=== PATIENT | male | born 1980 | race Two or more races ===

== ENCOUNTER 2024-01-24 11:19 | Inpatient (IN) | payer MEDICAID ==
[~2024-01-24] VITALS: Ht 170.2 cm; Wt 89.4 kg
[2024-01-24 10:00] VITALS: BP 147/99; PULSE 95; RESP 18; TEMP 97.6; O2SAT 95
[2024-01-24] MEDS ORDERED: LISI-892 PO (12:05)
[2024-01-24] MEDS ORDERED: BUPR1TAB46 SL ×2 (12:05→16:04)
[2024-01-24] MEDS ORDERED: FURO20 PO (12:05)
[2024-01-24] MEDS ORDERED: GABA-1181 PO (12:05)
[2024-01-24] MEDS ORDERED: CARV3 PO (12:05)
[2024-01-24] MEDS ORDERED: QUET200T PO (12:05)
[2024-01-24] MEDS ORDERED: OLAN10TA74 PO (12:05)
[2024-01-24 15:00] LABS: PH,URINE DRUG SCREEN 7.5 (5.0-8.0)
[2024-01-24] MEDS: BuPROPion HCL 150 MG SR TABLET PO ONE (15:03)
[2024-01-24] MEDS: OLANZapine 10 MG TABLET PO ONE (15:04)
[2024-01-24 15:07] LABS: ALCOHOL, URINE DRUG SCREEN NEGATIVE (NEGATIVE); AMPHET/METH SCREEN,URINE NEGATIVE (NEGATIVE); BARBITURATE SCREEN, URINE NEGATIVE (NEGATIVE); BENZODIAZEPINES SCREEN,URINE NEGATIVE (NEGATIVE); CANNABINOID SCREEN,URINE POSITIVE (NEGATIVE); COCAINE SCREEN,URINE NEGATIVE (NEGATIVE); METHADONE SCREEN, URINE NEGATIVE (NEGATIVE); OPIATE SCREEN,URINE NEGATIVE (NEGATIVE); PHENCYCLIDINE SCREEN,URINE NEGATIVE (NEGATIVE)
[2024-01-24] MEDS ORDERED: BUPR-433 PO (15:09)
[2024-01-24 15:36] LABS: COVID AG,FIA SOURCE NASAL SWAB
[2024-01-24] MEDS ORDERED: HALOPERIDOL 5 MG TABLET PO PRN (15:45)
[2024-01-24 16:00] LABS: BASOPHILS % (AUTO) 0.6 % (0.0-2.0); EOSINOPHILS % (AUTO) 0.9 % (1.0-6.0); HEMATOCRIT 43.5 % (41-53); HEMOGLOBIN 14.3 g/dL (13.5-17.5); LYMPHOCYTES # (AUTO) 1.5 K/uL (1.0-4.8); MEAN CORPUSCULAR HEMOGLOBIN 31.6 pg (26.0-34.0); MEAN CORPUSCULAR VOLUME 96 fL (80-100); MONOCYTES # (AUTO) 0.4 K/uL (0.1-1.0); MONOCYTES % (AUTO) 6.5 % (2.0-9.0); NEUTROPHILS # (AUTO) 4.8 K/uL (1.8-7.7); PLATELET COUNT (AUTO) 211 K/uL (150-450); RED BLOOD CELL COUNT(AUTO) 4.54 MIL/uL (4.50-5.90); RED CELL DISTRIBUTION WIDTH 13.3 % (11.5-14.5); WHITE BLOOD COUNT (AUTO) 6.9 K/uL (4.5-11.0)
[2024-01-24 16:09] LABS: ANION GAP 9 mmol/L (8-16); CALCIUM, TOTAL 9.1 mg/dL (8.8-10.5); CARBON DIOXIDE 30 mmol/L (22-29); CHLORIDE 99 mmol/L (98-107); CREATININE 1.07 mg/dL (0.60-1.30); GLOMERULAR FILTR. RATE CALC > 60 mL/min (>60); GLUCOSE,RANDOM 109 mg/dL (70-110); POTASSIUM 3.8 mmol/L (3.5-5.1); SODIUM SERUM 138 mmol/L (136-145); UREA NITROGEN, BLOOD 15 mg/dL (7-18)
[2024-01-24 16:12] LABS: ALCOHOL, BLOOD (SERUM) < 3 mg/dL (0-10)
[2024-01-24 16:20] LABS: SARS-COV2 (COVID) ANTIGEN,FIA Negative (Negative)
[2024-01-24] MEDS: BUPRENORPHINE HCL/NALOXONE HCL 8-2 MG SUBLINGUAL TABLET SL ONE (16:41)
[2024-01-24 17:08] VITALS: BP 141/87; PULSE 100; RESP 18; TEMP 97.8; O2SAT 98
[2024-01-24] MEDS: LORazepam 2 MG TABLET PO PRN (17:45)
[2024-01-24 21:30] VITALS: BP 95/55; PULSE 100; RESP 18; TEMP 97.5; O2SAT 100
[2024-01-24] MEDS: LORazepam 2 MG/ML VIAL IM ONE (22:03)
[2024-01-24] MEDS: DiphenhydrAMINE HCL 50 MG/ML VIAL IM ONE (22:03)
[2024-01-24] MEDS: ChlorproMAZINE HCL 50 MG/2 ML AMP IM ONE (22:04)
[2024-01-24 22:39] VITALS: BP 147/99; PULSE 95; RESP 18; TEMP 97.8; O2SAT 100
[2024-01-25] MEDS ORDERED: HALOPERIDOL 5 MG TABLET PO PRN (10:30)
[2024-01-25 10:49] VITALS: BP 146/61; PULSE 93; RESP 18; TEMP 97.4; O2SAT 99
[2024-01-25] MEDS: BUPRENORPHINE HCL/NALOXONE HCL 8-2 MG SUBLINGUAL TABLET SL SCH (13:49)
[2024-01-25] MEDS ORDERED: CloNIDine HCL 0.1 MG TABLET PO PRN (14:15)
[2024-01-25] MEDS ORDERED: DOCUSATE SODIUM 100 MG CAPSULE PO PRN (14:15)
[2024-01-25] MEDS ORDERED: ALBUTEROL SULFATE HFA 90 MCG/PUFF 8 GM INHALER IH PRN (14:15)
[2024-01-25] MEDS ORDERED: LOPERAMIDE HCL 2 MG CAPSULE PO PRN (14:15)
[2024-01-25] MEDS ORDERED: NICOTINE 14 MG/24 HOUR PATCH TD PRN (14:15)
[2024-01-25] MEDS ORDERED: MAGNESIUM HYDROXIDE SUSPENSION 30 ML UDCUP PO PRN (14:15)
[2024-01-25] MEDS ORDERED: QUEtiapine FUMARATE 100 MG TABLET PO PRN (14:30)
[2024-01-25] MEDS: BuPROPion HCL 150 MG SR TABLET PO SCH (15:10)
[2024-01-25] MEDS: OLANZapine 10 MG TABLET PO SCH (15:16)
[2024-01-25] MEDS: GABAPENTIN 300 MG CAPSULE PO SCH (18:01)
[2024-01-25] MEDS: FUROSEMIDE 20 MG TABLET PO SCH (18:01)
[2024-01-25] MEDS: CARVEDILOL 3.125 MG TABLET PO SCH (18:04)
[2024-01-25] MEDS: QUEtiapine FUMARATE 200 MG TABLET PO SCH (20:44)
[2024-01-26 07:33] LABS: HEMOGLOBIN A1C 5.7 % (3.8-5.6)
[2024-01-26 07:40] LABS: THYROID STIMULATING HORMONE 1.72 uIU/mL (0.36-3.74)
[2024-01-26] MEDS: OMEPRAZOLE 20 MG CAPSULE PO SCH (08:00)
[2024-01-26] MEDS: LISINOPRIL 5 MG TABLET PO SCH (08:06)
[2024-01-26 08:16] LABS: CHOL/HDL RATIO 2.2 (4.2-7.3)
[2024-01-26 09:48] VITALS: BP 136/85; PULSE 85; RESP 18; TEMP 98.1; O2SAT 97
[2024-01-26] MEDS: ZOLPIDEM TARTRATE 10 MG TABLET PO PRN (22:57)
[2024-01-27 08:54] VITALS: BP 135/87; PULSE 88; RESP 18; TEMP 97.3; O2SAT 97
[2024-01-27 20:19] VITALS: BP 135/90; PULSE 96; RESP 18; TEMP 97.9; O2SAT 98
[2024-01-28 08:03] VITALS: BP 146/92; PULSE 72; RESP 18; TEMP 96.9; O2SAT 99
[2024-01-28 20:48] VITALS: BP 149/85; PULSE 92; RESP 18; TEMP 97.7; O2SAT 97
[2024-01-29 10:09] VITALS: BP 156/99; PULSE 83; RESP 18; TEMP 97.6; O2SAT 99
[2024-01-29] MEDS: PETROLATUM,WHITE 28 GM JELLY TP PRN (11:33)
[2024-01-29] MEDS ORDERED: SODIUM CHLORIDE 0.9% 1,000 ML ONE (15:59)
[2024-01-29 20:32] VITALS: BP 143/84; PULSE 84; RESP 18; TEMP 97.8; O2SAT 98
[2024-01-29] MEDS: QUEtiapine FUMARATE 200 MG TABLET PO SCH (21:08)
[2024-01-30 09:34] VITALS: BP 154/99; PULSE 83; RESP 18; TEMP 97.9; O2SAT 98
[2024-01-30 20:33] VITALS: BP 112/87; PULSE 109; RESP 18; TEMP 98; O2SAT 96
[2024-01-31 08:15] VITALS: BP 157/81; PULSE 76; RESP 18; O2SAT 100
[2024-01-31] MEDS: ONDANSETRON 4 MG TABLET PO PRN (08:16)
[2024-01-31] MEDS: ACETAMINOPHEN 325 MG TABLET PO PRN ×2 (11:10→16:33)
[2024-01-31 21:24] VITALS: RESP 18
[2024-01-31 21:56] VITALS: BP 117/77; PULSE 92; RESP 18; TEMP 97.5; O2SAT 95
[2024-02-01] MEDS: MAG HYDROX/ALUMINUM HYD/SIMETH ES 30 ML SUSPENSION UDCUP PO PRN (13:11)
[2024-02-01] MEDS ORDERED: IOHEXOL 9 MG/ML 500 ML BOTTLE ONE (15:16)
[2024-02-01 15:19] LABS: COVID AG,FIA SOURCE NASAL SWAB
[2024-02-01 16:00] LABS: SARS-COV2 (COVID) ANTIGEN,FIA Negative (Negative)
[2024-02-01] MEDS: DiphenhydrAMINE HCL 50 MG/ML VIAL IM ONE (20:08)
[2024-02-01] MEDS: BENZTROPINE MESYLATE 1 MG TABLET PO SCH (21:00)
[2024-02-01 21:02] VITALS: BP 142/96; PULSE 86; RESP 20; TEMP 97; O2SAT 97
[2024-02-01 21:17] VITALS: BP 149/105; PULSE 89; RESP 18; TEMP 97.2; O2SAT 95
[2024-02-01 22:07] VITALS: RESP 17
[2024-02-02 08:25] VITALS: BP 165/100; PULSE 77; RESP 20; TEMP 98; O2SAT 99
[2024-02-02 10:29] VITALS: BP 165/100; PULSE 77; RESP 20; TEMP 98; O2SAT 99
[2024-02-02] MEDS: BISACODYL 10 MG RECTAL RECTAL SUPPOSITORY PR PRN (13:06)
[2024-02-02 20:58] VITALS: BP 122/101; PULSE 104; RESP 18; TEMP 97.2; O2SAT 97
[2024-02-03] MEDS: POLYETHYLENE GLYCOL 3350 17 GM PACKET PO SCH (08:36)
[2024-02-03 08:44] VITALS: BP 135/89; PULSE 82; RESP 18; TEMP 97.3; O2SAT 100
[2024-02-03 20:57] VITALS: BP 134/86; PULSE 104; RESP 18; TEMP 97.3; O2SAT 96
[2024-02-03 22:33] VITALS: RESP 18
[2024-02-03 23:36] VITALS: RESP 18
[2024-02-04 09:13] VITALS: BP 143/92; PULSE 93; RESP 20; O2SAT 98
[2024-02-04 13:53] VITALS: RESP 18
[2024-02-04] MEDS: GuaiFENesin/D-METHORPHAN [SUGAR-FREE] 200-20MG/10 ML SYRUP UDCUP PO PRN (14:02)
[2024-02-04 14:55] VITALS: RESP 16
[2024-02-04 21:00] VITALS: BP 129/94; PULSE 107; RESP 18; TEMP 97; O2SAT 97
[2024-02-04 22:00] VITALS: RESP 18
[2024-02-05 08:22] VITALS: BP 136/78; PULSE 106; RESP 18; TEMP 97.6; O2SAT 97
[2024-02-05 08:45] VITALS: BP 149/92; PULSE 105; RESP 18; TEMP 97.8; O2SAT 97
[2024-02-05 09:49] VITALS: RESP 17
[2024-02-05] MEDS ORDERED: LORazepam 1 MG TABLET PO PRN (10:17)
[2024-02-05] MEDS ORDERED: ZOLPIDEM TARTRATE 5 MG TABLET PO PRN (10:30)
[2024-02-05 10:32] LABS: COVID AG,FIA SOURCE NASAL SWAB
[2024-02-05 11:30] LABS: SARS-COV2 (COVID) ANTIGEN,FIA Positive (Negative)
[2024-02-05 12:51] VITALS: BP 134/84; PULSE 86; RESP 18; TEMP 98.8; O2SAT 96
[2024-02-05 14:58] VITALS: TEMP 98.7
[2024-02-05 16:19] VITALS: BP 144/97; PULSE 88; RESP 20; TEMP 98.1; O2SAT 97
== END 2024-02-05 16:00 | disposition left against medical advice (07) | DRG 750 ==
LOC: EMS 11:19 → 3EI 16:20 → 3EC 19:41
PROVIDERS: ADMIT Psychiatry & Neurology Psychiatry; ATTEND Psychiatry & Neurology Psychiatry
PROC: GZ52ZZZ Individual Psychotherapy, Cognitive (ICD-10-PCS; 2024-01-25)
PROC: GZHZZZZ Group Psychotherapy (ICD-10-PCS; 2024-01-25)
PROC: 0DC98ZZ Extirpation of Matter from Duodenum, Via Natural or Artificial Opening Endoscopic (ICD-10-PCS; principal; 2024-01-29 16:30)
DX: F25.1 Schizoaffective disorder, depressive type (principal); U07.1 COVID-19; R45.851 Suicidal ideations; I50.9 Heart failure, unspecified; I11.0 Hypertensive heart disease with heart failure; F31.9 Bipolar disorder, unspecified; F11.20 Opioid dependence, uncomplicated; G47.00 Insomnia, unspecified; F12.10 Cannabis abuse, uncomplicated; K21.9 Gastro-esophageal reflux disease without esophagitis; K59.00 Constipation, unspecified; G62.9 Polyneuropathy, unspecified; T18.8XXA Foreign body in other parts of alimentary tract, initial encounter; Z53.29 Procedure and treatment not carried out because of patient's decision for other reasons; W44.8XXA Other foreign body entering into or through a natural orifice, initial encounter; Y93.89 Activity, other specified; Y92.89 Other specified places as the place of occurrence of the external cause; Y99.8 Other external cause status; Z88.8 Allergy status to other drugs, medicaments and biological substances; Z79.899 Other long term (current) drug therapy; Z91.51 Personal history of suicidal behavior; Z91.199 Patient's noncompliance with other medical treatment and regimen due to unspecified reason
CPT/HCPCS: 74018; 74019; 74177; 80048; 80061; 80307; 83036; 84443; 85025; 87081; 99285; G0480; J1200; J2060; J3230; J7030; Q0162; 36415-L1; 36415-TC

== ENCOUNTER 2024-02-18 16:32 | Inpatient (IN) | payer MEDICAID ==
[~2024-02-18] VITALS: Ht 170.2 cm; Wt 81.8 kg
[~2024-02-18 16:32] MED LIST: BUPR-433 PO; BUPR1TAB46 SL; CARV3 PO; FURO20 PO; GABA-1181 PO; LISI-892 PO; OLAN10TA74 PO; QUET200T PO
[2024-02-18 16:43] VITALS: TEMP 98.6
[2024-02-18 17:14] LABS: BASOPHILS % (AUTO) 0.6 % (0.0-2.0); EOSINOPHILS % (AUTO) 0.4 % (1.0-6.0); HEMATOCRIT 44.6 % (41-53); HEMOGLOBIN 14.6 g/dL (13.5-17.5); LYMPHOCYTES # (AUTO) 0.9 K/uL (1.0-4.8); LYMPHOCYTES % (AUTO) 12.2 % (22.0-44.0); MEAN CORPUSCULAR HEMOGLOBIN 30.7 pg (26.0-34.0); MEAN CORPUSCULAR HGB CONC 32.8 G/dL (31.0-37.0); MEAN CORPUSCULAR VOLUME 94 fL (80-100); MONOCYTES # (AUTO) 0.3 K/uL (0.1-1.0); MONOCYTES % (AUTO) 4.3 % (2.0-9.0); NEUTROPHILS # (AUTO) 6.3 K/uL (1.8-7.7); NEUTROPHILS % (AUTO) 82.5 % (40.0-70.0); PLATELET COUNT (AUTO) 244 K/uL (150-450); RED BLOOD CELL COUNT(AUTO) 4.76 MIL/uL (4.50-5.90); RED CELL DISTRIBUTION WIDTH 13.3 % (11.5-14.5); WHITE BLOOD COUNT (AUTO) 7.6 K/uL (4.5-11.0)
[2024-02-18 17:24] LABS: ANION GAP 11 mmol/L (8-16); CALCIUM, TOTAL 9.5 mg/dL (8.8-10.5); CARBON DIOXIDE 26 mmol/L (22-29); CHLORIDE 101 mmol/L (98-107); CREATININE 0.91 mg/dL (0.60-1.30); GLOMERULAR FILTR. RATE CALC > 60 mL/min (>60); GLUCOSE,RANDOM 118 mg/dL (70-110); POTASSIUM 4.3 mmol/L (3.5-5.1); SODIUM SERUM 138 mmol/L (136-145); UREA NITROGEN, BLOOD 16 mg/dL (7-18)
[2024-02-18 17:38] LABS: ALCOHOL, BLOOD (SERUM) < 3 mg/dL (0-10)
[2024-02-18] MEDS: OLANZapine 10 MG TABLET PO ONE (20:29)
[2024-02-18] MEDS: MORPHINE SULFATE 2 MG/ML SYRINGE IVP ONE (20:58)
[2024-02-18 21:11] VITALS: BP 136/88; PULSE 97; RESP 18; O2SAT 98
[2024-02-18] MEDS ORDERED: RINGERS SOLUTION,LACTATED 1,000 ML IV SCH (22:30)
[2024-02-18] MEDS ORDERED: ONDANSETRON HCL 4 MG/2 ML VIAL IVP PRN (22:30)
[2024-02-19] MEDS: QUEtiapine FUMARATE 100 MG TABLET PO ONE (00:33)
[2024-02-19] MEDS: GABAPENTIN 300 MG CAPSULE PO ONE (00:33)
[2024-02-19] MEDS ORDERED: KETOROLAC TROMETHAMINE 15 MG/ML VIAL IVP PRN (00:45)
[2024-02-19] MEDS ORDERED: BUPRENORPHINE HCL/NALOXONE HCL 8-2 MG SUBLINGUAL TABLET SL SCH (09:00)
[2024-02-19] MEDS ORDERED: FUROSEMIDE 20 MG TABLET PO SCH (09:00)
[2024-02-19] MEDS ORDERED: OLANZapine 10 MG TABLET PO SCH (09:00)
[2024-02-19] MEDS ORDERED: LISINOPRIL 5 MG TABLET PO SCH (09:00)
[2024-02-19] MEDS ORDERED: BuPROPion HCL 150 MG SR TABLET PO SCH (09:00)
[2024-02-19] MEDS ORDERED: GABAPENTIN 300 MG CAPSULE PO SCH (09:00)
[2024-02-19] MEDS ORDERED: DOCUSATE SODIUM 100 MG CAPSULE PO SCH (09:00)
[2024-02-19] MEDS ORDERED: CARVEDILOL 3.125 MG TABLET PO SCH (09:00)
[2024-02-19] MEDS ORDERED: QUEtiapine FUMARATE 200 MG TABLET PO SCH (21:00)
[2024-02-20] MEDS ORDERED: HEPARIN SODIUM,PORCINE 5,000 UNITS/ML VIAL SQ SCH
== END 2024-02-19 01:38 | disposition left against medical advice (07) | DRG 254 ==
LOC: EMS 16:32 → EDH 22:29
PROVIDERS: ADMIT Internal Medicine; ATTEND Internal Medicine
DX: T18.2XXA Foreign body in stomach, initial encounter (principal); R45.851 Suicidal ideations; I50.9 Heart failure, unspecified; F25.1 Schizoaffective disorder, depressive type; I11.0 Hypertensive heart disease with heart failure; F43.9 Reaction to severe stress, unspecified; F41.9 Anxiety disorder, unspecified; Z53.29 Procedure and treatment not carried out because of patient's decision for other reasons; Z88.6 Allergy status to analgesic agent; Z88.8 Allergy status to other drugs, medicaments and biological substances; W44.E9XA Other non-magnetic metal objects entering into or through a natural orifice, initial encounter; Y93.89 Activity, other specified; Y92.89 Other specified places as the place of occurrence of the external cause; Y99.8 Other external cause status
CPT/HCPCS: 74019; 74176; 80048; 85025; 99285; G0378; G0480; J2270

== ENCOUNTER 2024-02-19 18:59 | Emergency (ER) | payer MEDICAID ==
[~2024-02-19] VITALS: Ht 167.6 cm; Wt 86.4 kg
[2024-02-19 19:04] VITALS: BP 149/94; PULSE 95; RESP 18; TEMP 97.9; O2SAT 99
== END 2024-02-19 21:36 | disposition left against medical advice (07) ==
LOC: EMS 18:59
DX: R45.851 Suicidal ideations (principal); Z53.21 Procedure and treatment not carried out due to patient leaving prior to being seen by health care provider

== ENCOUNTER 2024-02-25 01:21 | Inpatient (IN) | payer MEDICAID ==
[~2024-02-25] VITALS: Ht 167.6 cm; Wt 83.5 kg
[~2024-02-25 01:21] MED LIST changes: -FURO20 PO; +FURO20TA5 PO
[2024-02-25] MEDS ORDERED: HALOPERIDOL 5 MG TABLET PO PRN (06:30)
[2024-02-25] MEDS ORDERED: ZOLPIDEM TARTRATE 10 MG TABLET PO PRN (06:30)
[2024-02-25] MEDS ORDERED: LORazepam 2 MG TABLET PO PRN (06:30)
[2024-02-25] MEDS ORDERED: INFLUENZA VIRUS VACCINE TVS (6MO+) 2024-25/PF 45 MCG/0.5 ML SYRINGE IM. ONE (06:45)
[2024-02-25] MEDS ORDERED: PROMETHAZINE HCL 25 MG TABLET PO PRN (08:30)
[2024-02-25] MEDS ORDERED: OLANZapine 5 MG RAPDIS TABLET PO PRN (08:30)
[2024-02-25] MEDS ORDERED: TUBERCULIN, PURIFIED PROTEIN DERIVATIVE 5 TU/0.1 ML SYRINGE ID ONE (08:30)
[2024-02-25] MEDS ORDERED: MAG HYDROX/ALUMINUM HYD/SIMETH ES 30 ML SUSPENSION UDCUP PO PRN (08:30)
[2024-02-25] MEDS ORDERED: GuaiFENesin/D-METHORPHAN [SUGAR-FREE] 200-20MG/10 ML SYRUP UDCUP PO PRN (08:30)
[2024-02-25] MEDS ORDERED: MAGNESIUM HYDROXIDE SUSPENSION 30 ML UDCUP PO PRN (08:30)
[2024-02-25] MEDS ORDERED: LORazepam 1 MG TABLET PO ONE (15:30)
[2024-02-25] MEDS: DiphenhydrAMINE HCL 50 MG/ML VIAL IM ONE (17:00)
[2024-02-25] MEDS ORDERED: LORazepam 2 MG/ML VIAL IM ONE (17:30)
[2024-02-25] MEDS: FluPHENAZine HCL 2.5 MG/ML INJ IM ONE (17:30)
[2024-02-25 17:35] VITALS: BP 145/75; PULSE 105; RESP 18; TEMP 98.4; O2SAT 97
[2024-02-25] MEDS: CARVEDILOL 3.125 MG TABLET PO SCH (18:42)
[2024-02-25] MEDS: THIAMINE 100 MG TABLET PO SCH (18:42)
[2024-02-25] MEDS: GABAPENTIN 300 MG CAPSULE PO SCH (18:42)
[2024-02-25 19:41] LABS: GLUCOMETER DEV NAME(LOC) BV3N.2; GLUCOSE,POINT OF CARE 135 MG/DL (70-110)
[2024-02-25] MEDS: DIVALPROEX SODIUM 500 MG ER TABLET PO SCH (20:26)
[2024-02-25] MEDS: MELATONIN 5 MG TABLET PO SCH (20:27)
[2024-02-25] MEDS: OLANZapine 5 MG RAPDIS TABLET PO SCH (20:27)
[2024-02-25 21:16] VITALS: BP 113/57; PULSE 102; TEMP 98.5; O2SAT 100
[2024-02-25] MEDS: ACETAMINOPHEN 325 MG TABLET PO PRN (22:15)
[2024-02-25] MEDS: MULTIVITAMINS WITH MINERALS, THERAPEUTIC TABLET PO SCH (23:00)
[2024-02-25] MEDS: OMEGA-3/DHA/EPA/FISH OIL 1,000 MG CAPSULE PO SCH (23:00)
[2024-02-25] MEDS: NALTREXONE HCL 50 MG TABLET PO SCH (23:00)
[2024-02-25] MEDS: FOLIC ACID 1 MG TABLET PO SCH (23:00)
[2024-02-25] MEDS: FLUoxetine HCL 20 MG CAPSULE PO SCH (23:00)
[2024-02-26 08:22] VITALS: BP 131/85; PULSE 76; RESP 18; TEMP 96.8; O2SAT 98
[2024-02-26] MEDS: FUROSEMIDE 20 MG TABLET PO SCH (08:31)
[2024-02-26] MEDS: LISINOPRIL 5 MG TABLET PO SCH (08:31)
[2024-02-26] MEDS: PALIPERIDONE PALMITATE 234 MG/1.5 ML SYRINGE IM ONE (09:00)
[2024-02-26] MEDS: LORazepam 2 MG TABLET PO PRN (10:19)
[2024-02-26] MEDS: HydrOXYzine PAMOATE 50 MG CAPSULE PO PRN (10:51)
[2024-02-26 11:11] VITALS: RESP 18
[2024-02-26 12:45] VITALS: BP 148/88; PULSE 100; RESP 22
[2024-02-26 13:00] VITALS: BP 100/60; PULSE 74; RESP 22
[2024-02-26 21:10] VITALS: BP 105/67; PULSE 63; RESP 18; TEMP 98; O2SAT 95
[2024-02-27] MEDS: GABAPENTIN 300 MG CAPSULE PO ONE (02:16)
[2024-02-27] MEDS: ZOLPIDEM TARTRATE 10 MG TABLET PO PRN (03:10)
[2024-02-27] MEDS: LOPERAMIDE HCL 2 MG CAPSULE PO PRN (05:31)
[2024-02-27] MEDS: BUPRENORPHINE HCL/NALOXONE HCL 8-2 MG SUBLINGUAL TABLET SL SCH (08:02)
[2024-02-27 09:09] VITALS: BP 127/87; PULSE 96; RESP 16; O2SAT 97
[2024-02-27] MEDS ORDERED: ChlorproMAZINE HCL 100 MG TABLET PO PRN (16:30)
[2024-02-27] MEDS: ChlorproMAZINE HCL 25 MG TABLET PO SCH (17:00)
[2024-02-27 20:08] VITALS: BP 125/70; PULSE 75; RESP 18; TEMP 98
[2024-02-27] MEDS: ChlorproMAZINE HCL 100 MG TABLET PO SCH (21:00)
[2024-02-28] MEDS: BuPROPion HCL 150 MG SR TABLET PO SCH (09:01)
[2024-02-28 09:37] VITALS: BP 128/88; PULSE 78; RESP 17; TEMP 97.8; O2SAT 97
[2024-02-28 10:06] VITALS: BP 128/88; PULSE 73; RESP 18; TEMP 96.8; O2SAT 97
[2024-02-28] MEDS: GABAPENTIN 400 MG CAPSULE PO SCH (12:25)
[2024-02-28] MEDS ORDERED: ESZOPICLONE 3 MG TABLET PO PRN (16:15)
[2024-02-28] MEDS: OLANZapine 5 MG RAPDIS TABLET PO SCH (20:18)
[2024-02-28 21:05] VITALS: RESP 18
[2024-02-29 16:50] VITALS: RESP 17
[2024-02-29 17:50] VITALS: RESP 16
[2024-02-29 20:01] VITALS: BP 122/66; PULSE 90; RESP 16; TEMP 97.7
[2024-03-01 08:11] VITALS: BP 120/76; PULSE 68; RESP 17; TEMP 97.5; O2SAT 99
[2024-03-01] MEDS ORDERED: PALIPERIDONE PALMITATE 156 MG/ML SYRINGE IM ONE (09:00)
[2024-03-01] MEDS: OLANZapine 5 MG RAPDIS TABLET PO PRN (09:12)
[2024-03-01] MEDS: LORazepam 0.5 MG TABLET PO PRN (11:05)
[2024-03-01 20:35] VITALS: BP 104/73; PULSE 77; RESP 18; TEMP 97.7; O2SAT 97
[2024-03-02 08:01] VITALS: BP 132/86; PULSE 72; RESP 17; TEMP 97.4; O2SAT 100
[2024-03-02] MEDS: MINERAL OIL/PETROLATUM 120 GM CREAM TP PRN (09:38)
[2024-03-02] MEDS: GABAPENTIN 300 MG CAPSULE PO PRN (09:43)
[2024-03-02 15:41] VITALS: BP 136/94; PULSE 96; RESP 17; TEMP 97; O2SAT 97
[2024-03-02 16:41] VITALS: RESP 17; O2SAT 98
[2024-03-02 20:26] VITALS: BP 132/83; PULSE 72; RESP 17; TEMP 97.4; O2SAT 100
[2024-03-03 08:01] VITALS: BP 109/75; PULSE 60; RESP 17; TEMP 98.3; O2SAT 100
[2024-03-03] MEDS: OLANZapine 10 MG RAPDIS TABLET PO SCH (08:07)
[2024-03-03 08:55] LABS: APPEARANCE,URINE TURBID (CLEAR); BILIRUBIN,URINE NEGATIVE (NEGATIVE); COLOR,URINE YELLOW (YELLOW); GLUCOSE, URINE (UA) NEGATIVE (NEGATIVE); LEUKOCYTE ESTERASE ,URINE NEGATIVE (NEGATIVE); NITRATE,URINE NEGATIVE (NEGATIVE); OCCULT BLOOD,URINE NEGATIVE (NEGATIVE); PROTEIN,URINE 30-70 mg/dL (NEGATIVE); SPECIFIC GRAVITIY, URINE 1.039 (1.003-1.030); UROBILINOGEN,URINE <=1.0 mg/dL (<=1.0)
[2024-03-03 09:09] LABS: ALCOHOL, URINE DRUG SCREEN NEGATIVE (NEGATIVE); AMPHET/METH SCREEN,URINE NEGATIVE (NEGATIVE); BARBITURATE SCREEN, URINE NEGATIVE (NEGATIVE); BENZODIAZEPINES SCREEN,URINE NEGATIVE (NEGATIVE); CANNABINOID SCREEN,URINE POSITIVE (NEGATIVE); COCAINE SCREEN,URINE NEGATIVE (NEGATIVE); METHADONE SCREEN, URINE NEGATIVE (NEGATIVE); OPIATE SCREEN,URINE NEGATIVE (NEGATIVE); PHENCYCLIDINE SCREEN,URINE NEGATIVE (NEGATIVE)
[2024-03-03] MEDS ORDERED: OMEG100033 PO (09:34)
[2024-03-03] MEDS ORDERED: FLUO-418 PO (09:34)
[2024-03-03] MEDS ORDERED: NALT50TA33 PO (09:34)
[2024-03-03] MEDS ORDERED: OLAN10TA26 PO (09:34)
[2024-03-03] MEDS ORDERED: DIVA-153 PO (09:34)
[2024-03-03] MEDS ORDERED: GABA-1201 PO (09:34)
[2024-03-03] MEDS ORDERED: BUPR-433 PO (09:34)
[2024-03-03] MEDS ORDERED: OLANZapine 10 MG RAPDIS TABLET PO SCH (21:00)
== END 2024-03-03 18:17 | disposition home or self-care (01) | DRG 885 ==
LOC: B3A 17:28
PROVIDERS: ADMIT Psychiatry & Neurology Psychiatry; ATTEND Psychiatry & Neurology Psychiatry
PROC: GZHZZZZ Group Psychotherapy (ICD-10-PCS; principal; 2024-02-25)
PROC: GZ58ZZZ Individual Psychotherapy, Cognitive-Behavioral (ICD-10-PCS; 2024-02-25)
DX: F25.0 Schizoaffective disorder, bipolar type (principal); I11.0 Hypertensive heart disease with heart failure; R45.851 Suicidal ideations; F15.20 Other stimulant dependence, uncomplicated; F17.210 Nicotine dependence, cigarettes, uncomplicated; F41.9 Anxiety disorder, unspecified; R45.88 Nonsuicidal self-harm; G40.909 Epilepsy, unspecified, not intractable, without status epilepticus; F12.20 Cannabis dependence, uncomplicated; F43.10 Post-traumatic stress disorder, unspecified; I50.9 Heart failure, unspecified; J44.9 Chronic obstructive pulmonary disease, unspecified; T43.596A Underdosing of other antipsychotics and neuroleptics, initial encounter; Z55.9 Problems related to education and literacy, unspecified; Z59.9 Problem related to housing and economic circumstances, unspecified; Z63.9 Problem related to primary support group, unspecified; Z65.3 Problems related to other legal circumstances; Z91.52 Personal history of nonsuicidal self-harm; Z88.8 Allergy status to other drugs, medicaments and biological substances; Y92.89 Other specified places as the place of occurrence of the external cause; Z91.148 Patient's other noncompliance with medication regimen for other reason
CPT/HCPCS: 80307; 81003; 82962; 90686; J1200; J2060; J3490

== ENCOUNTER 2024-02-26 13:32 | Emergency (ER) | payer MEDICAID ==
[~2024-02-26] VITALS: Ht 165.1 cm; Wt 82.4 kg
[2024-02-26] MEDS: DiphenhydrAMINE HCL 50 MG/ML VIAL IM ONE (14:30)
[2024-02-26] MEDS ORDERED: PALIPERIDONE PALMITATE 234 MG/1.5 ML SYRINGE IM ONE (14:30)
[2024-02-26] MEDS: LORazepam 2 MG/ML VIAL IM ONE ×2 (14:30→17:14)
[2024-02-26 14:49] LABS: ALCOHOL, URINE DRUG SCREEN NEGATIVE (NEGATIVE); AMPHET/METH SCREEN,URINE POSITIVE (NEGATIVE); BARBITURATE SCREEN, URINE NEGATIVE (NEGATIVE); BENZODIAZEPINES SCREEN,URINE NEGATIVE (NEGATIVE); CANNABINOID SCREEN,URINE NEGATIVE (NEGATIVE); COCAINE SCREEN,URINE NEGATIVE (NEGATIVE); METHADONE SCREEN, URINE NEGATIVE (NEGATIVE); OPIATE SCREEN,URINE NEGATIVE (NEGATIVE); PHENCYCLIDINE SCREEN,URINE NEGATIVE (NEGATIVE)
[2024-02-26 16:02] LABS: BASOPHILS % (AUTO) 0.6 % (0.0-2.0); EOSINOPHILS % (AUTO) 0.5 % (1.0-6.0); HEMATOCRIT 46.1 % (41-53); LYMPHOCYTES # (AUTO) 1.1 K/uL (1.0-4.8); LYMPHOCYTES % (AUTO) 10.7 % (22.0-44.0); MEAN CORPUSCULAR HEMOGLOBIN 30.4 pg (26.0-34.0); MEAN CORPUSCULAR HGB CONC 32.6 G/dL (31.0-37.0); MEAN CORPUSCULAR VOLUME 93 fL (80-100); MONOCYTES # (AUTO) 0.3 K/uL (0.1-1.0); MONOCYTES % (AUTO) 3.2 % (2.0-9.0); NEUTROPHILS # (AUTO) 8.6 K/uL (1.8-7.7); PLATELET COUNT (AUTO) 222 K/uL (150-450); RED BLOOD CELL COUNT(AUTO) 4.95 MIL/uL (4.50-5.90); RED CELL DISTRIBUTION WIDTH 13.6 % (11.5-14.5); WHITE BLOOD COUNT (AUTO) 10.1 K/uL (4.5-11.0)
[2024-02-26 16:10] LABS: ANION GAP 13 mmol/L (8-16); CALCIUM, TOTAL 9.4 mg/dL (8.8-10.5); CARBON DIOXIDE 25 mmol/L (22-29); CHLORIDE 101 mmol/L (98-107); CREATININE 0.99 mg/dL (0.60-1.30); GLOMERULAR FILTR. RATE CALC > 60 mL/min (>60); GLUCOSE,RANDOM 102 mg/dL (70-110); POTASSIUM 3.7 mmol/L (3.5-5.1); SODIUM SERUM 139 mmol/L (136-145); UREA NITROGEN, BLOOD 20 mg/dL (7-18)
[2024-02-26 16:20] LABS: ALCOHOL, BLOOD (SERUM) < 3 mg/dL (0-10)
[2024-02-26 19:00] VITALS: BP 127/84; PULSE 87; RESP 22; O2SAT 98
== END 2024-02-26 19:54 ==
LOC: EMS 13:32
DX: F15.129 Other stimulant abuse with intoxication, unspecified (principal); R45.1 Restlessness and agitation; F31.9 Bipolar disorder, unspecified; I11.0 Hypertensive heart disease with heart failure; F20.9 Schizophrenia, unspecified; F12.90 Cannabis use, unspecified, uncomplicated; Z98.890 Other specified postprocedural states; Z88.8 Allergy status to other drugs, medicaments and biological substances; Z88.6 Allergy status to analgesic agent
CPT/HCPCS: 80048; 85025; 36415; 96372; 99291; 80307; G0480; J1200; J2060

== ENCOUNTER 2024-03-17 20:31 | Inpatient (IN) | payer MEDICAID ==
[~2024-03-17] VITALS: Ht 167.6 cm; Wt 85.4 kg
[~2024-03-17 20:31] MED LIST changes: -BUPR1TAB46 SL; -CARV3 PO; +DIVA-153 PO; +FLUO-418 PO; -FURO20TA5 PO; -GABA-1181 PO; +GABA-1201 PO; -LISI-892 PO; +NALT50TA33 PO; +OLAN10TA26 PO; -OLAN10TA74 PO; +OMEG100033 PO; -QUET200T PO
[2024-03-17 20:49] LABS: COVID AG,FIA SOURCE NASAL SWAB
[2024-03-17 21:01] LABS: ALCOHOL, URINE DRUG SCREEN NEGATIVE (NEGATIVE); AMPHET/METH SCREEN,URINE POSITIVE (NEGATIVE); BARBITURATE SCREEN, URINE NEGATIVE (NEGATIVE); BENZODIAZEPINES SCREEN,URINE NEGATIVE (NEGATIVE); CANNABINOID SCREEN,URINE POSITIVE (NEGATIVE); COCAINE SCREEN,URINE NEGATIVE (NEGATIVE); METHADONE SCREEN, URINE NEGATIVE (NEGATIVE); OPIATE SCREEN,URINE NEGATIVE (NEGATIVE); PHENCYCLIDINE SCREEN,URINE NEGATIVE (NEGATIVE)
[2024-03-17 21:15] LABS: SARS-COV2 (COVID) ANTIGEN,FIA Negative (Negative)
[2024-03-17 21:30] LABS: BASOPHILS % (AUTO) 0.4 % (0.0-2.0); EOSINOPHILS % (AUTO) 0.1 % (1.0-6.0); HEMOGLOBIN 13.6 g/dL (13.5-17.5); LYMPHOCYTES # (AUTO) 0.8 K/uL (1.0-4.8); LYMPHOCYTES % (AUTO) 11.1 % (22.0-44.0); MEAN CORPUSCULAR HEMOGLOBIN 30.4 pg (26.0-34.0); MEAN CORPUSCULAR HGB CONC 32.4 G/dL (31.0-37.0); MEAN CORPUSCULAR VOLUME 94 fL (80-100); MONOCYTES # (AUTO) 0.3 K/uL (0.1-1.0); NEUTROPHILS # (AUTO) 6.2 K/uL (1.8-7.7); NEUTROPHILS % (AUTO) 84.4 % (40.0-70.0); PLATELET COUNT (AUTO) 185 K/uL (150-450); RED BLOOD CELL COUNT(AUTO) 4.48 MIL/uL (4.50-5.90); RED CELL DISTRIBUTION WIDTH 14.1 % (11.5-14.5); WHITE BLOOD COUNT (AUTO) 7.4 K/uL (4.5-11.0)
[2024-03-17] MEDS ORDERED: QUEtiapine FUMARATE 100 MG TABLET PO PRN ×2 (21:30→22:00)
[2024-03-17] MEDS ORDERED: ZOLPIDEM TARTRATE 10 MG TABLET PO PRN ×2 (21:30→22:00)
[2024-03-17] MEDS ORDERED: LORazepam 2 MG TABLET PO PRN ×2 (21:30→22:00)
[2024-03-17 21:40] LABS: ANION GAP 13 mmol/L (8-16); CALCIUM, TOTAL 8.2 mg/dL (8.8-10.5); CARBON DIOXIDE 24 mmol/L (22-29); CHLORIDE 106 mmol/L (98-107); CREATININE 0.94 mg/dL (0.60-1.30); GLOMERULAR FILTR. RATE CALC > 60 mL/min (>60); GLUCOSE,RANDOM 142 mg/dL (70-110); POTASSIUM 3.6 mmol/L (3.5-5.1); SODIUM SERUM 143 mmol/L (136-145); UREA NITROGEN, BLOOD 11 mg/dL (7-18)
[2024-03-17 21:53] LABS: TROPONIN I-HIGH SENSITIVITY 5 ng/L (<76)
[2024-03-17 21:59] LABS: ALCOHOL, BLOOD (SERUM) < 3 mg/dL (0-10)
[2024-03-17] MEDS: LORazepam 2 MG TABLET PO ONE (23:20)
[2024-03-18] MEDS: ChlorproMAZINE HCL 25 MG TABLET PO ONE (00:50)
[2024-03-18] MEDS: CARVEDILOL 6.25 MG TABLET PO ONE (05:15)
[2024-03-18 10:58] LABS: APPEARANCE,URINE CLEAR (CLEAR); BILIRUBIN,URINE NEGATIVE (NEGATIVE); COLOR,URINE LIGHT YELLOW (YELLOW); GLUCOSE, URINE (UA) TRACE mg/dL (NEGATIVE); KETONES,URINE NEGATIVE (NEGATIVE); LEUKOCYTE ESTERASE ,URINE NEGATIVE (NEGATIVE); NITRATE,URINE NEGATIVE (NEGATIVE); OCCULT BLOOD,URINE NEGATIVE (NEGATIVE); PH,URINE 7.5 (5.0-8.0); PROTEIN,URINE TRACE mg/dL (NEGATIVE); SPECIFIC GRAVITIY, URINE 1.024 (1.003-1.030); UROBILINOGEN,URINE <=1.0 mg/dL (<=1.0)
[2024-03-18 11:30] LABS: BACTERIA,URINE None Seen /HPF (None Seen); RBC,URINE None Seen /HPF (0-2); WBC,URINE None Seen /HPF (0-5)
[2024-03-18] MEDS ORDERED: LORazepam 2 MG TABLET PO PRN (17:45)
[2024-03-18] MEDS: LORazepam 2 MG/ML VIAL IM ONE (17:56)
[2024-03-18] MEDS: DiphenhydrAMINE HCL 50 MG/ML VIAL IM ONE (17:56)
[2024-03-18] MEDS: HALOPERIDOL LACTATE 5 MG/ML VIAL IM ONE (17:56)
[2024-03-18] MEDS ORDERED: HALOPERIDOL 5 MG TABLET PO PRN (18:00)
[2024-03-18] MEDS ORDERED: BUPR-514 PO (18:04)
[2024-03-18] MEDS: BuPROPion HCL XL 150 MG ER TABLET PO SCH (18:11)
[2024-03-18 20:06] VITALS: O2SAT 98
[2024-03-18] MEDS ORDERED: ZOLPIDEM TARTRATE 10 MG TABLET PO PRN (22:00)
[2024-03-18 22:16] VITALS: BP 148/85; PULSE 98; RESP 18; TEMP 97.2; O2SAT 100
[2024-03-18] MEDS ORDERED: PNEUMOCOCCAL VACCINE POLYVALENT 0.5 ML SYRINGE [PPSV23] IM. ONE (22:45)
[2024-03-18] MEDS ORDERED: INFLUENZA VIRUS VACCINE TVS (6MO+) 2024-25/PF 45 MCG/0.5 ML SYRINGE IM. ONE (22:45)
[2024-03-19] MEDS ORDERED: MAG HYDROX/ALUMINUM HYD/SIMETH ES 30 ML SUSPENSION UDCUP PO PRN (01:30)
[2024-03-19] MEDS ORDERED: BENZOCAINE/MENTHOL LOZENGE PO PRN (01:30)
[2024-03-19] MEDS ORDERED: CloNIDine HCL 0.1 MG TABLET PO PRN (01:30)
[2024-03-19] MEDS ORDERED: ACETAMINOPHEN 325 MG TABLET PO PRN (01:30)
[2024-03-19] MEDS ORDERED: ONDANSETRON 4 MG TABLET PO PRN (01:30)
[2024-03-19] MEDS ORDERED: DOCUSATE SODIUM 100 MG CAPSULE PO PRN (01:30)
[2024-03-19] MEDS ORDERED: MAGNESIUM HYDROXIDE SUSPENSION 30 ML UDCUP PO PRN (01:30)
[2024-03-19] MEDS ORDERED: BACITRACIN 28 GM OINTMENT TP PRN (01:30)
[2024-03-19] MEDS ORDERED: PETROLATUM,WHITE 28 GM JELLY TP PRN (01:30)
[2024-03-19] MEDS ORDERED: OMEPRAZOLE 20 MG CAPSULE PO PRN (01:30)
[2024-03-19] MEDS ORDERED: ALBUTEROL SULFATE HFA 90 MCG/PUFF 8 GM INHALER IH PRN (01:30)
[2024-03-19] MEDS ORDERED: LOPERAMIDE HCL 2 MG CAPSULE PO PRN (01:30)
[2024-03-19] MEDS: LORazepam 2 MG TABLET PO PRN (03:14)
[2024-03-19 08:09] VITALS: BP 129/90; PULSE 81; RESP 17; TEMP 97.5; O2SAT 99
[2024-03-19] MEDS: OLANZapine 5 MG RAPDIS TABLET PO PRN (09:50)
[2024-03-19 10:58] VITALS: BP 170/102; PULSE 84; RESP 18; TEMP 98.2; O2SAT 99
[2024-03-19] MEDS: CARVEDILOL 6.25 MG TABLET PO SCH (11:00)
[2024-03-19] MEDS: FUROSEMIDE 20 MG TABLET PO SCH (11:02)
[2024-03-19] MEDS: LISINOPRIL 5 MG TABLET PO SCH (11:02)
[2024-03-19 11:36] VITALS: BP 159/106; PULSE 88; RESP 18; TEMP 98.4; O2SAT 99
[2024-03-19 12:31] VITALS: BP 141/92; PULSE 86; RESP 16; TEMP 97.6; O2SAT 99
[2024-03-19] MEDS: GABAPENTIN 400 MG CAPSULE PO SCH (12:32)
[2024-03-19 18:51] VITALS: BP 111/74; PULSE 58; RESP 18; TEMP 97.6; O2SAT 99
[2024-03-19] MEDS ORDERED: LORazepam 2 MG/ML VIAL IM ONE (22:15)
[2024-03-19] MEDS ORDERED: DiphenhydrAMINE HCL 50 MG/ML VIAL IM ONE (22:15)
[2024-03-19] MEDS ORDERED: HALOPERIDOL LACTATE 5 MG/ML VIAL IM ONE (22:15)
[2024-03-19] MEDS ORDERED: GABA-1201 PO (22:40)
[2024-03-19] MEDS ORDERED: FURO20TA5 PO (22:41)
[2024-03-19] MEDS ORDERED: CARV6 PO (22:41)
[2024-03-20] MEDS ORDERED: CARVEDILOL 6.25 MG TABLET PO SCH (09:00)
[2024-03-20] MEDS ORDERED: LISINOPRIL 5 MG TABLET PO SCH (09:00)
[2024-03-20] MEDS ORDERED: FUROSEMIDE 20 MG TABLET PO SCH (09:00)
== END 2024-03-20 00:37 | disposition home or self-care (01) | DRG 750 ==
LOC: EMS 20:31 → B3A 03-18 20:56
PROVIDERS: ADMIT Psychiatry & Neurology Psychiatry; ATTEND Psychiatry & Neurology Psychiatry
DX: F25.1 Schizoaffective disorder, depressive type (principal); R45.851 Suicidal ideations; I50.9 Heart failure, unspecified; I11.0 Hypertensive heart disease with heart failure; Z20.822 Contact with and (suspected) exposure to COVID-19; G62.9 Polyneuropathy, unspecified; F41.9 Anxiety disorder, unspecified; G47.00 Insomnia, unspecified; K59.00 Constipation, unspecified; Z88.8 Allergy status to other drugs, medicaments and biological substances; Y92.89 Other specified places as the place of occurrence of the external cause; Z91.199 Patient's noncompliance with other medical treatment and regimen due to unspecified reason; T50.901A Poisoning by unspecified drugs, medicaments and biological substances, accidental (unintentional), initial encounter
CPT/HCPCS: 71045; 80048; 80307; 81001; 83880; 84484; 85025; 87081; 93005; G0480; J1200; J1630; J2060; 36415-L1; 36415-TC

== ENCOUNTER 2024-03-25 19:30 | Emergency (ER) | payer MEDICAID ==
[~2024-03-25] VITALS: Ht 167.6 cm; Wt 84.1 kg
[~2024-03-25 19:30] MED LIST changes: -BUPR-433 PO; +BUPR-514 PO; +BUPR1TAB46 SL; +CARV6 PO; -DIVA-153 PO; -FLUO-418 PO; +FURO20TA5 PO; -NALT50TA33 PO; -OLAN10TA26 PO; -OMEG100033 PO
[2024-03-25 19:36] VITALS: BP 176/114; PULSE 112; RESP 16; TEMP 98.3; O2SAT 98
[2024-03-25 21:09] LABS: COVID AG,FIA SOURCE NASAL SWAB
[2024-03-25 21:35] LABS: SARS-COV2 (COVID) ANTIGEN,FIA Negative (Negative)
[2024-03-25] MEDS: OLANZapine 10 MG TABLET PO ONE (22:38)
[2024-03-25] MEDS: LORazepam 1 MG TABLET PO ONE (22:38)
[2024-03-25] MEDS: DiphenhydrAMINE HCL 25 MG CAPSULE PO ONE (22:38)
== END 2024-03-26 07:10 | disposition home or self-care (01) ==
LOC: EMS 19:30
DX: R44.0 Auditory hallucinations (principal); I11.0 Hypertensive heart disease with heart failure; F17.210 Nicotine dependence, cigarettes, uncomplicated; F12.90 Cannabis use, unspecified, uncomplicated; Z88.6 Allergy status to analgesic agent; Z20.822 Contact with and (suspected) exposure to COVID-19
CPT/HCPCS: 99284; Z7502; Z7610